=== PATIENT | male | born 1950 ===

== ENCOUNTER 2017-07-16 07:35 | Day surgery (SDC) | payer MEDICAID, MEDICARE ==
--- NOTE | 2017-07-13 16:48 | Pre-Procedure Note/Attestation ---
Pre-Procedure Note/Attestation Complete Prior to Procedure Planned Procedure: left Procedure Narrative: phaco with IOL Indications for Procedure Pre-Operative Diagnosis: cataract Attestation I attest that I discussed the nature of the procedure; its benefits; risks and complications; and alternatives (and the risks and benefits of such alternatives ), prior to the procedure, with the patient (or the patient's legal career services representative). I attest that, if there was a reasonable possibility of needing a blood transfusion, the patient (or the patient's legal career services representative) was given the [facility] standardized written summary, pursuant to the [place] Blood Safety Act ([place] Health and Safety Code # 1645, as amended). I attest that I re-evaluated the patient just prior to the surgery and that there has been no change in the patient's H&P, except as documented below: GORDY CRUZ Jul 13, 2017 16:48
[2017-07-16] VITALS (10 sets, daily range): BP systolic 123–168; BP diastolic 61–79
[~2017-07-16] VITALS: Ht 170.2 cm; Wt 85.3 kg
[2017-07-16] MEDS: Ketorolac Tromethamine Opth 5ml Soln LEFT EYE SCH ×6 (07:15→08:24)
[~2017-07-16 07:35] MED LIST: Akten 3.5% 1ml Btl LEFT EYE ONE; Akten 3.5% 1ml Btl ONE; BSS 15ml BTL ONE; Carbachol 0.01% Op Soln 1.5ml vial ONE; DOXAZOSIN MESYLA1 MG ORAL; Dexamethasone 4mg/ml vial ONE; EPINEPHrine 1mg/1ml Amp ONE; LEVOTHYROXINE150 MCG ORAL; Lidocaine 2% MPF 5ml Vial INJ ONE; Lidocaine 4% Amp ONE; METOPROLOL TART50 M1 ORAL; PANTOPRAZOLE SO40 MG ORAL; PEXEVA20 MG ORAL; Pilocarpine 2% Opth 15ml Soln ONE; Povidone-Iodine 5% opth solution ONE; SIMVASTATIN40 MG ORAL; Sodium Hyaluronate 10 mg/ml 0.85ml ONE; Tetracaine 0.5% Opth 4ml Soln ONE; XANAX0.5 MG ORAL; acetaZOLAMIDE 500mg Inj ONE
[2017-07-16] MEDS: Tropicamide 1% Opth 15ml Soln LEFT EYE SCH ×3 (08:08→08:24)
[2017-07-16] MEDS: Cyclopentolate 1% Opth Sol 2ml LEFT EYE SCH ×3 (08:08→08:24)
[2017-07-16] MEDS: Tobramycin Op Soln 0.3% 5ml LEFT EYE SCH ×3 (08:08→08:25)
[2017-07-16] MEDS: Phenylephrine 10% Opth Soln 5ml LEFT EYE SCH ×3 (08:09→08:24)
[2017-07-16] MEDS ORDERED: Sterile Water Irrig 1000ml IRRIG ONE (09:00)
[2017-07-16] MEDS ORDERED: Pred Forte 1% Opth Susp 1ml ONE (09:00)
[2017-07-16] MEDS ORDERED: Midazolam 2mg/2ml Inj ONE (09:00)
[2017-07-16] MEDS ORDERED: Propofol 200mg/20ml IV ONE (09:00)
[2017-07-16] MEDS ORDERED: BSS 500ml btl ONE (09:00)
[2017-07-16] MEDS ORDERED: EPINEPHrine 1mg/1ml Amp ONE (09:00)
[2017-07-16] MEDS ORDERED: NS Irrig 1000ml ONE (09:00)
[2017-07-16] MEDS ORDERED: Dexamethasone 4mg/ml vial ONE (09:00)
[2017-07-16] MEDS ORDERED: LR 1000ml ONE (09:00)
[2017-07-16] MEDS ORDERED: Tetracaine 0.5% Opth 4ml Soln ONE (09:00)
[2017-07-16] MEDS ORDERED: Maxitrol Opth Oint 3.5gm ONE (09:00)
--- NOTE | 2017-07-16 09:20 | Anethesia Preoperative Eval ---
Anesthesia Pre-op PMH/ROS General Date of Evaluation: Jul 16, 2017 Time of Evaluation: 08:59 Anesthesiologist: Cristiane ASA Score: ASA 2 Mallampati Score Class I : Soft palate, uvula, fauces, pillars visible Class II: Soft palate, uvula, fauces visible Class III: Soft palate, base of uvula visible Class IV: Only hard plate visible Mallampati Classification: Class I Surgeon: Mary Diagnosis: L eye cataract Surgical Procedure: cataract extraction, IOL implantation Anesthesia History: none Social History: smoking Family History: no anesthesia problems Allergies: Coded Allergies: No Known Allergies (Unverified , 07/13/17) Medications: see eMAR Past Medical History Cardiovascular: Reports: HTN, other - HL Pulmonary: Reports: other - SMOKING Gastrointestinal/Genitourinary: Reports: other - CONSTIPAION Endocrine: Reports: hypothyroidism HEENT: Reports: cataract (L) Other: obesity Anesthesia Pre-op Phys. Exam Physician Exam Last Vital Signs Date Time Temp Pulse Resp B/P (MAP) Pulse Ox O2 Delivery O2 Flow Rate FiO2 07/16/17 08:13 98.4 52 17 168/79 96 Room Air Constitutional: NAD Cardiovascular: RRR Respiratory: CTA Airway Exam Mallampati Score: Class I ROM: full Anesthesia Pre-op A/P Risk Assessment & Plan Assessment: ASA 2 Plan: Fouzia Funk M.D. Jul 16, 2017 09:20
[2017-07-16] MEDS ORDERED: Midazolam 2mg/2ml Inj IVP PRN (09:30)
[2017-07-16] MEDS ORDERED: fentaNYL 100 mcg/2 mL IV PRN (09:30)
[2017-07-16] MEDS ORDERED: Atropine Inj 1mg/10ml Syr IV PRN (09:30)
--- NOTE | 2017-07-16 11:08 | Brief Operative Note ---
Immediate Post Operative Note Operative Note Chief Complaint: blurry vision Pre-op Diagnosis: cataract, OS Procedure: phaco with IOL, OS Post-op Diagnosis: Pseudophakia Post-op Diagnosis: same as pre-op Findings: consistent w/pre-op dx studies Surgeon: Mary Anesthesiologist: Cristiane Anesthesia: MAC Specimen: none Complications: none Condition: stable Fluids: LR Estimated Blood Loss: none Drains: none Implant(s) used?: Yes GORDY CRUZ Jul 16, 2017 11:08
--- NOTE | 2017-07-16 11:09 | Operative Note - PDOC ---
Operative Note Operative Note Date of Operation/Procedure: Jul 16, 2017 Chief Complaint: blurry vision Pre-op Diagnosis: cataract, OS Procedure: phaco with IOL, OS Post-op Diagnosis: Pseudophakia Post-op Diagnosis: same as pre-op Operative Findings: consistent w/pre-op dx studies Surgeon: Mary Anesthesiologist: Cristiane Anesthesia: MAC Specimen: none Complications: none Condition: stable Fluids: LR Estimated Blood Loss: none Drains: none Implant(s) used?: Yes Indications for Procedure cataract Description of Procedure This patient has been complaining visually significant cataract in the affected eye with the best corrected visual acuity under moderate glare conditions worse. The patient complains of difficulties with glare in performing activities of daily living and wants to manage personal affairs with comfort and accuracy and see well enough to move with safety at home and outdoors. The risks, benefits and alternatives of the procedure were discussed with the patient in the office prior to scheduling surgery. All questions from the patient were answered after the surgical procedure was explained in detail. The risks of the procedure as explained to the patient include, but are not limited to, pain, infection, bleeding, loss of vision, retinal detachment, need for further surgery, loss of lens nucleus, double vision, etc. Alternative procedures were discussed which include, to do nothing or seek a second opinion. Informed consent for this procedure was obtained from the patient. The patient was referred to a primary care physician for a cardiopulmonary clearance prior to surgery, after proper evaluation was done patient was properly scheduled for outpatient surgery. The patient was brought to the operating room where the anesthesiologist established I.V. lines and cardiac monitoring leads. Mild intravenous sedation was administered. Using a solution containing 0.75% Marcaine and 2% lidocaine with W[place]ase, a peribulbar block was administered to the eye. The patient was then prepared with a 5% solution of povidone-iodine to the conjunctival fornix and lashes, and a 10% solution of povidone-iodine to the lids and periorbital skin. The patient was then draped in the usual sterile fashion. A lid speculum was then placed in the operative eye. A keratome blade was then used to create a biplanar incision into the anterior chamber. Viscoelastics was then instilled into the anterior chamber. A capsulorrhexis was then fashioned with an utrata forceps, followed by hydrodissection and hydro delineation of the the lens. Paracentesis incision was made at 3 o'clock with sharp blade. The phacoemulsification unit, after being properly adjusted and tested, was then used to emulsify the nucleus. Residual cortical material was aspirated with the irrigation and aspiration unit. Healon was then instilled into the anterior chamber. The corneal wound was then enlarged to the size of the optic with the olri keratome blade. The intraocular lens was then inspected for right power and size and thought to be satisfactory. Then the lens was gently placed in the capsular bag. Positioning within the capsular bag was confirmed by direct visualization. Optic centration was accomplished with a Sinskey hook. Viscoelastics was removed from the anterior chamber using the irrigation and aspiration unit. The corneal wound was then tested for leaks and none were found. The lid speculum were then removed. Sponge and needle counts were correct. An eye patch and shield were placed over the operative eye. The patient was taken to the recovery room in stable condition. There were no complications. The patient tolerated the procedure well. The patient was then transferred to the ambulatory surgery unit in stable and satisfactory condition , was given detailed written instructions and asked to follow up in the office the next day. Dictated & Transcribed: JHP Humera AVITIA JAMES Jul 16, 2017 11:09
--- NOTE | 2017-07-16 15:32 | Immediate Post-Op Evaluation ---
Immediate Post-Op Evalulation Immediate Post-Op Evalulation Procedure: L cataract extraction, IOL implantation Date of Evaluation: Jul 16, 2017 Time of Evaluation: 09:50 IV Fluids: 200 LR Blood Products: NONE Blood Pressure Systolic: 150 Blood Pressure Diastolic: 75 Pulse Rate: 51 Respiratory Rate: 18 O2 Sat by Pulse Oximetry: 99 Temperature (Fahrenheit): 97.4 Pain Score (1-10): 0 Nausea: No Vomiting: No Complications NONE Hydration Status: adequate Fouzia Sauer M.D. Jul 16, 2017 15:32
--- NOTE | 2017-07-16 15:34 | 48 Hour Post Anesthesia Eval ---
Post Anesthesia Evaluation Procedure: L cataract extraction, IOL implantation Date of Evaluation: Jul 16, 2017 Time of Evaluation: 10:00 Blood Pressure Systolic: 147 Pulse Rate: 52 Respiratory Rate: 18 Temperature (Fahrenheit): 97.5 O2 Sat by Pulse Oximetry: 99 Airway: patent Nausea: No Vomiting: No Pain Intensity: 0 Hydration Status: adequate Mental Status/LOC: patient returned to baseline Follow-up care needed: ready to discharge Fouzia Sauer M.D. Jul 16, 2017 15:34
== END 2017-07-16 11:05 | disposition home or self-care (01) ==
LOC: SUR 07:35
DX: H26.9 Unspecified cataract (principal); I10 Essential (primary) hypertension; E03.9 Hypothyroidism, unspecified; F41.9 Anxiety disorder, unspecified; E89.0 Postprocedural hypothyroidism; F03.90 Unspecified dementia, unspecified severity, without behavioral disturbance, psychotic disturbance, mood disturbance, and anxiety; E78.5 Hyperlipidemia, unspecified; E78.00 Pure hypercholesterolemia, unspecified; Z86.19 Personal history of other infectious and parasitic diseases; Z79.82 Long term (current) use of aspirin; F17.200 Nicotine dependence, unspecified, uncomplicated; Z90.89 Acquired absence of other organs
CPT/HCPCS: 66984; J0171; J1100; J2250; J2704; J3370; J7120; V2632; 94003; 94150